=== PATIENT | male | born 1960 | race Caucasian/White ===

== ENCOUNTER 2016-08-11 10:07 | Emergency (ER) | payer OTHER ==
[~2016-08-11] VITALS: Ht 180.3 cm; Wt 115.7 kg
[~2016-08-11 10:07] MED LIST: BUSPAR 10MG TAB10 MG PO; CIPRO 500MG TA500 MG PO; CIPROFLOXACIN500 MG PO; FLEXERIL10 MG PO; FLOMAX 0.4MG C0.4 MG PO; FLOMAX0.4 MG PO; IBU-8800 MG PO; LEVOFLOXACIN 5500 M1 PO; LORTAB 5/500 501 TAB PO; LORTAB 500 MG-71 TAB PO; MIRALAX17 GM/PACK PO; MOTRIN600 MG PO; NEXIUM40 MG PO; OXYCODONE40 MG; PERCOCET 325 MG1 TA4 PO; PERCOCET 5/3251 EACH PO; PREDNISONE 20MG20 MG PO; PROAIR HFA0.09 MG/AC IH; PROMETHAZINE HC25 M1 PO; PYRIDIUM 200MG200 MG PO; TORADOL10 M1 PO; TRAZODONE HCL50 MG PO; ULTRAM50 MG PO; Zofran4 MG PO
--- OUTSIDE RECORDS SUMMARY | 2016-08-11 10:15 | External Medical Summary Rpt ---
Author Author , Organization [employer] Address Unknown Phone Unavailable Purpose Continuity of Care Document - through 2016 Problems Code Diagnosis DOS Provider Status E87.6 HYPOKALEMIA J40 BRONCHITIS, NOT SPECIFIED ACUTE OR CHRONIC J93.0 SPONTANEOUS TENSION PNEUMOTHORA X N20.1 CALCULUS OF URETER
--- OUTSIDE RECORDS SUMMARY | 2016-08-11 10:15 | External Medical Summary Rpt ---
Author Author [facility] Organization [facility] Address Unknown Phone Unavailable Purpose Continuity of Care Document - through 2016
--- OUTSIDE RECORDS SUMMARY | 2016-08-11 10:15 | External Medical Summary Rpt ---
Demographics Preferred Language Frisian Marital Status Unknown Hoahaoism Affiliation Unknown Race Unknown Ethnic Group Unknown Author Author , Organization [facility] Address Unknown Phone Unavailable Purpose Continuity of Care Document - through 2016 Immunization No patient found.
--- OUTSIDE RECORDS SUMMARY | 2016-08-11 10:15 | External Medical Summary Rpt ---
Demographics Preferred Language Kinyarwanda Marital Status Unknown Spiritism Affiliation Unknown Race Unknown Ethnic Group Unknown Author Author , Organization [facility] Address Unknown Phone Unavailable Purpose Continuity of Care Document - through 2016 Immunization No patient found.
[2016-08-11] MEDS ORDERED: TESSALON PERLE100 M1 PO (11:05)
[2016-08-11] MEDS ORDERED: ZITHROMAX Z-PA250 M2 PO (11:05)
[2016-08-11] MEDS ORDERED: VENTOLIN H0.09 MG/Ac IH (11:05)
--- NOTE | 2016-08-11 11:07 | Urgent Treatment Center Report ---
History of Present Issue Date/Time Seen by Provider 08/11/16 1027 Visit Reason Pt arrived:Walked Presenting Problem:PT C/O HEAD AND CHEST CONGESTION Location if Accident: Onset of symptoms date/time:/ or onset unknown for:MEDICAL HX UNKNOWN Have you (or family members/close friends) recently traveled outside the [place]? N If Yes, where/when: Have you had exposure to infectious disease within the past month? TB? Other? Specify: Source patient, family Exam Limitations no limitations Comment 56-year-old male presented to the ER with complaints of cough, congestion, and shortness of breath for 3 days. 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 ALLERGIES Coded Allergies: No Known Allergies (05/03/15) Home Medications Active Scripts TAMSULOSIN HCL (Flomax) 0.4 MG PO QHS #30 CAP Prov: 10/02/11 Tramadol Hcl (Ultram 50MG) 50 MG PO QIDP PRN pain #16 TAB Prov: 05/03/15 Reported Medications Esomeprazole Magnesium (Nexium 40MG Cap) 40 MG PO DAILY Polyethylene Glycol 3350 (Miralax) 17 GM PO DAILY Albuterol Sulfate (Proair Hfa) 1 PUFF IH Q6HP PRN SOA #9 Buspirone Hcl (Buspar 10MG) 10 MG PO DAILY #90 History Medical History General CAD? No Angina: No KS: No Hypertension? No Hyperlipidemia? No CHF? No DVT? No PE? No COPD? Yes Asthma? Yes Anemia? No GERD? Yes Gastric ulcers? No GI Bleed? No Hernia? No Thyroid Problems? No Hypothyroidism? No CVA? No Seizures? No Diabetes? No Insulin Dependent: No Insulin Pump: No Home FSBS? No Renal Insuffiency? No UTI? Yes Stones? Yes BPH? Yes GB Disease: No Nephritic Syndrome? No Asplenia? No Hepatitis? No Sickle Cell Disease? No Arthritis? Yes Migraines? No Cataracts? No Glaucoma? No MRSA? No HIV? No TB? No Anxiety? Yes Depression? No Cancer? No More? No Immunization HX DT/Tetanus 1-4 Years Ago Flu 2013-15FSN Pneumonia Never Had Surgical Hx Previous Surgery?Y TEETH EXTRACTION LITHOTRIPSY KIDNEY STONEY REMOVAL CHEST TUBE Family History Family HX Diabetes No CAD Yes Hypertension Yes Hyperlipidemia No Cancer Yes TB No Social History Smoking Hx Smoker: Current Every Day Smoker Tobacco: Yes Type Chew Packs/day < 1 Pack Alcohol Alcohol: No Review of Systems All Other Systems Reviewed and Negative Respiratory see HPI, cough, shortness of breath Cardiovascular denies no symptoms reported Gastrointestinal denies no symptoms reported Physical Exam Vital Signs Vital Signs Date Time Temp Pulse Resp B/P Pulse O2 O2 Flow FiO2 Ox Delivery Rate 08/11 1020 97.7 68 18 168/99 94 General Appearance normal appearance, no apparent distress Eye Exam - bilateral eye normal exam Respiratory Status Yes: trachea midline, chest symmetrical, non tender chest. No: respiratory distress. Lung Sounds posterior: decreased breath sounds. left: decreased breath sounds. Cardiovascular normal exam, no peripheral edema Peripheral Pulses Pulses normal Yes Gastrointestinal normal bowel sounds, non tender Back normal inspection Extremities non-tender Neurologic alert, normal exam, oriented x 3 Medical Decision Making LABS/Meds/Orders Pt receiving controlled substance in ED? No Results/Orders Current Medication Orders Sig/Felisha Start time Last Medication Dose Route Stop Time Status Admin Ceftriaxone Sodium 1 GM ONCE ONE 08/11 1100 DC / IM 08/11 1101 1102 Dexamethasone Sodium 4 MG ONCE ONE 08/11 1100 DC 06/ Phosphate IM / 1101 1102 Lidocaine HCl 0 ONCE ONE 08/11 1100 DC 06/04 IM 06/ 1101 1102 Ceftriaxone Sodium 0 .STK-MED ONE 08/11 1055 DC .ROUTE Dexamethasone Sodium 0 .STK-MED ONE 08/11 1055 DC Phosphate .ROUTE Lidocaine HCl 0 .STK-MED ONE 08/11 1055 DC IJ Orders Procedure Date/time Status CHEST(2 VIEWS-NOT PORTABLE) 08/11 1024 Active XRAY/CT/US XRAY/CT/US XRAY chest XR interpretation by reviewed by me Xray Results normal/NAD Departure Departure Time of Disposition 1059 Disposition DC Home or Self Care(routine) Clinical Impression Primary Impression: Bronchitis Condition STABLE Referrals Anatoliy العراقي MD Patient Instructions DI for Acute Bronchitis Discharge Counseling Counseled pt/family regarding diagnosis, test results, medications/RX, home care, follow up needs Prescriptions Current Visit Scripts Azithromycin (Zithromax) 250 MG PO DAILY #6 TAB USE DIRECTED. Benzonatate (Tessalon Perle) 100 MG PO BIDP PRN COUGH 5 Days Albuterol Sulfate (Ventolin Hfa) 0.09 MG IH Q4HP PRN COUGH #1 POW Comments Tylenol Motrin as needed for pain or fever. Follow-up with PCP on Friday. If symptoms worsen or do not improve return or be seen in the ER at [phone]
[2016-08-11 11:09] VITALS: BP 168/99
--- NOTE | 2016-08-11 12:19 | RADIOLOGY REPORT PS360 ---
CHEST(2 VIEWS-NOT PORTABLE) COMPARISON: PA and lateral chest 04/03/2014 HISTORY: Congestion TECHNIQUE: PA and lateral chest FINDINGS: This is a somewhat poor inspiration however the lung mayers are clear of infiltrate. Cardiac size is normal and the vascularity is normal. There are small calcified hilar nodes along with a calcite granuloma right upper lobe. There is generalized osteopenia the thoracic spine with a stable nonrecent compression fracture lower thoracic spine IMPRESSION: Nonacute chest findings
== END 2016-08-11 11:10 | disposition home or self-care (01) ==
LOC: UTC 10:07
DX: J20.9 Acute bronchitis, unspecified (principal); K21.9 Gastro-esophageal reflux disease without esophagitis; F41.9 Anxiety disorder, unspecified; J44.9 Chronic obstructive pulmonary disease, unspecified

== ENCOUNTER → 2016-09-02 | Outpatient (CLI) | payer OTHER ==
[~2016-09-02] MED LIST changes: +TESSALON PERLE100 M1 PO; +VENTOLIN H0.09 MG/Ac IH; +ZITHROMAX Z-PA250 M2 PO
--- NOTE | 2016-09-03 17:02 | RADIOLOGY REPORT PS360 ---
PROCEDURE: 2-D M-mode and color Doppler study INDICATIONS FOR THE TEST: Chest pain COPD Heart Murmur Tobacco Smoking Palpitations Fatigue Syncope Edema Hypertension Diabetes Mellitus Rheumatic Fever SOB+BENOIT Obesity+Hyperlipidemia+ Family History HD Additional History PATIENT INFORMATION HEIGHT: 72 WEIGHT:265 GENDER: Male B/P:150/70 2-D/M-MODE INTERPRETATION: 2-D MEASUREMENTS OBSERVED VALUES IN CMS Right Ventricular Dimension (RVDd) 3.0 Interventricular Septum (Thickness)(IVsd) 1.1 Left Ventricular Internal Dimensions(LVIDd) 5.2 Left Ventricular Posterior Wall (Thickness)(LVPWd) 0.9 Aortic Root 3.9 Aortic Cusp Separation 2.2 Left Atrial Dimensions (LAD) 3.0 2D 1. Left atrium is normal size, left ventricle is normal size, there is no concentric left ventricular hypertrophy, visually estimated ejection fraction of 55% with no obvious regional wall motion abnormality. 2. The right atrium is normal size, right ventricle is mildly enlarged with normal contractility. 3. The aortic valve is minimally thickened and fibrosed. 4. The mitral and tricuspid valve are structurally normal. 5. The pulmonic valve is not well visualized. 6. No significant pericardial effusion noted. DOPPLER INTERROGATION: Doppler interrogation of the aortic mitral and tricuspid valvular presence of mild mitral and tricuspid regurgitation, tricuspid regurgitant jet velocity insufficient for calculation of the right ventricular systolic pressure, diastolic parameters are inconclusive. CONCLUSION: 1. Normal left ventricular size, preserved left ventricular systolic function, visually estimated ejection fraction 55% with no obvious regional wall motion abnormality. Diastolic parameters are inconclusive. 2. Mildly enlarged right ventricle with normal contractility. 3. Mild mitral and tricuspid regurgitation. 4. No significant pericardial effusion noted.
== END ==
LOC: RT 07:21 → RAD 08:00 → RT 08:45
DX: R06.09 Other forms of dyspnea (principal)

== ENCOUNTER → 2016-12-13 | Outpatient (CLI) | payer OTHER ==
[2016-12-13 15:21] LABS: BUN 15 mg/dL (7-18)
[2016-12-13 15:22] LABS: GFR (ESTIMATED) 116 ML/MIN (>60)
== END ==
LOC: LAB 09:38
PROVIDERS: Internal Medicine Adolescent Medicine
DX: Z00.00 Encounter for general adult medical examination without abnormal findings (principal)